=== PATIENT | female | born 1990 | race Caucasian/White ===

== ENCOUNTER 2016-12-15 09:24 | Inpatient (IN) ==
[2016-12-15 10:27] VITALS: BMI 27.0
--- NOTE | 2016-12-15 10:46 | Anesthesia Preoperative Report ---
Anesthesia Epidural/Spinal Rec - Date and Time Date: 12/15/16 Procedure: Labor Epidural Plan: Epidural - Vital Signs Vital Signs: Temperature 98.2 F 12/15/16 10:10 Pulse Rate 97 12/15/16 10:10 Respiratory Rate 16 12/15/16 10:10 Blood Pressure 132/87 12/15/16 10:10 Pulse Oximetry 99 12/15/16 10:10 /Para: P:1 Heart Rate: 135 - Medictaions & Allergies Allergies/Adverse Reactions: Allergies Allergy/AdvReac Type Severity Reaction Status Date / Time No Known Allergies Allergy Unverified 03/09/12 15:30 - Home Medications Home Medications: Home Medications Medication Instructions Recorded Confirmed Type Sertraline HCl [Zoloft] 25 mg PO DAILY #0 08/12/10 History Vits W-Ca,Fe,Fa(<1MG) 1 tab PO DAILY #0 02/02/12 History () Butalb/Acetaminophen/Caffeine 1 tab PO PRN #0 03/09/12 History (Fioricet 50/325/40) Ibuprofen 800 mg PO PRN #0 03/09/12 History - Medical History Gastrointestional: Reports: Gastroesophageal Reflux Disease Neuro/Musculoskeletal: Reports: Depression, Headaches - Surgical History Anesthesia Reactions: None Hx Family Anesthesia Reaction: No History of Motion Sickness: No - Social History Smoking Status: Current every day smoker Packs per day: 0.1 Second Hand Exposure: No Substance Use Type: does not use Alcohol Intake Frequency: does not drink Hx Chewing Tobacco Use: No - Physical Exam Respiratory Exam: lungs clear Cardiovascular Exam: regular rate and rhythm - Airway Assessment Mallampati Score: I TMD: 3 Fingerbreadths Neck Extension: good Overall Assessment: no airway concerns - ASA ASA Score: 2 - Discussion Discussion: Discussed risks/options/alternatives of anesthesia and questions answered. Patient consents. Nursing pain assessment noted. Anesthesia Discussion: family member Attestation Statement: Prior to the delivery of any anesthetic medication, I examined the patient, developed the plan, obtained the patient's consent and discussed the risk and benefits of the procedure with the patient/guardian.
[2016-12-15] MEDS ORDERED: MAG-AL + SIM ORAL LIQUID 30ml PO PRN ×2 (10:59→20:02)
[2016-12-15] MEDS ORDERED: CARBOPROST 250 MCG/ML INJECTION IM PRN (10:59)
[2016-12-15] MEDS ORDERED: METHYLERGONOVINE 0.2 MG/ML INJECTION IM PRN (10:59)
[2016-12-15] MEDS ORDERED: LIDOCAINE 1% (10mg/ml) 2mL INJ PF SDV ID PRN (10:59)
[2016-12-15] MEDS ORDERED: CALCIUM CARBONATE Chewable 500mg TABLET PO PRN ×2 (10:59→20:02)
[2016-12-15] MEDS ORDERED: ACETAMINOPHEN 500 MG TABLET PO PRN ×2 (10:59→20:02)
[2016-12-15] MEDS: LR 1,000 ML IV PRN ×2 (12:04→12:24)
[2016-12-15] MEDS ORDERED: NALOXONE 0.4 MG/ML INJECTION IVP PRN (12:07)
[2016-12-15] MEDS ORDERED: ONDANSETRON 4 MG/2 ML INJECTION IVP PRN (12:07)
[2016-12-15] MEDS ORDERED: ROPIVACAINE 1% 10MG/ML INJ 200 MG, SUFentanil 50 MCG in NS 100 ML EPI PRN (12:07)
[2016-12-15] MEDS ORDERED: DiphenhydrAMINE 50 MG/ML INJECTION IVP PRN (12:07)
[2016-12-15] MEDS ORDERED: OXYTOCIN DRIP 30 UNIT/500 ML ML IV PRN (14:37)
[2016-12-15] MEDS ORDERED: D5LR 1,000 ML IV PRN (14:37)
[2016-12-15] MEDS: OXYTOCIN DRIP 30 UNIT/500 ML ML IV SCH (18:40)
[2016-12-15] MEDS ORDERED: DiphenhydrAMINE 25 MG CAPSULE PO PRN (20:02)
[2016-12-15] MEDS ORDERED: BENZOCAINE 20% SPRAY 0.5 ML MM ONE (20:02)
[2016-12-15] MEDS ORDERED: HYDROCORTISONE 2.5% CREAM 30gm RECTALLY PRN (20:02)
[2016-12-15] MEDS: HYDROCODONE/APAP 5mg/325mg TABLET PO PRN (20:52)
[2016-12-15] MEDS: IBUPROFEN 800 MG TABLET PO PRN (20:52)
[2016-12-16] MEDS: HYDROCODONE/APAP 5mg/325mg TABLET PO PRN ×4 (02:34→22:37)
[2016-12-16] MEDS ORDERED: NS 1,000 ML IV SCH (03:00)
[2016-12-16] MEDS ORDERED: MORPHINE SULFATE 10 MG SYRINGE IV PRN (03:00)
[2016-12-16] MEDS: OXYTOCIN DRIP 30 UNIT/500 ML ML IV SCH (03:25)
--- NOTE | 2016-12-16 08:01 | OB/GYN Progress Note ---
OB-PP Progress Note - General PPD1 Maternal blood type: A+ Maternal Rubella Status: Immune - Subjective Date: 12/16/16 Lochia: Minimal Pain: controlled Voiding: voiding Nausea or Vomiting Present: No - Objective Vital Signs: Last Vital Signs Temp 98.1 F 12/15/16 23:30 Pulse 87 12/15/16 23:30 Resp 16 12/15/16 23:30 BP 116/68 12/15/16 23:30 Pulse Ox 98 12/15/16 23:30 General: alert and oriented Abdomen: fundus firm, non-tender Edema: none Laboratory: Laboratory Results - last 24 hr 12/15/16 12/15/16 11:08 11:08 WBC 9.3 RBC 4.30 Hgb 13.3 Hct 39.2 MCV 91.2 MCH 30.9 MCHC 33.9 RDW Std Deviation 44.0 Plt Count 322 MPV 9.5 Blood Type A Positive Antibody Screen Negative - Assessment Assessment: SP, , Tubal Ligation Comments: Still desires PPTL. Reviewed permanence, options. Q&A - Plan Plan: routine care
--- NOTE | 2016-12-16 08:07 | Labor and Delivery Note ---
DATE OF DELIVERY: 12/15/2016 DIAGNOSES 1. 26-year-old white female, G2, P1, at 38.6 weeks gestational age. 2. Premature rupture of membranes. 3. Pitocin induction for PROM. 4. Epidural anesthesia. 5. Spontaneous vaginal delivery. 6. Nuchal cord x 1. 7. Female , 3085 g, 8//9/9 Apgars (Marlin Trina). BRIEF DESCRIPTION This is a patient of Dr. Scruggs who is a G2, P1. Her first delivery was with Dr. Cordero. She is 38 weeks 6 days gestational age and reports her water broke this morning. She came in and AmniSure was positive and she was 2 cm dilated. She was oneal some, so they waited to see if she would go into labor on her own, but she didn't and so Dr. Scruggs started Pitocin. It reached a maximum of 20 milliunits a minute. She got an epidural block. She progressed slowly. At 5:00 p.m. she was 3/80/-2 with Pitocin at 20. At that time Dr. Scruggs turned care over to me. She continued to progress in dilation and then later that evening when I checked her she was complete in ROP presentation. We set the room up and then began pushing and baby spontaneously rotated to OA. We had a spontaneous vaginal delivery through a nuchal cord x 1. Infant was bulb suctioned after delivery of the head and then again after delivery of the body. Cord was allowed to drain for a minute and 45 seconds and then it was completed collapsed by that time, so I went ahead and doubly clamped and cut it. The was initially placed on the mother's abdomen. Placenta delivered spontaneously and was intact. Perineum was intact. Maternal blood type is A+, GBS was negative and rubella was immune. At time of dictation mother and infant are doing well. MTDD
[2016-12-16] MEDS ORDERED: LR 1,000 ML IV SCH (11:00)
[2016-12-16] MEDS ORDERED: BUPIVACAINE 0.25% (2.5mg/ml) PF 30ml INJECTION ONE (11:13)
--- NOTE | 2016-12-16 11:28 | Anesthesia Preoperative Report ---
Anesthesia Preoperative Record - Date and Time Date: 12/16/16 Preoperative Diagnosis: pt request sterilization Proposed Procedure: pptl NPO Since Date: 12/15/16 NPO Since Time: 23:00 Allergies/Adverse Reactions: Allergies Allergy/AdvReac Type Severity Reaction Status Date / Time No Known Allergies Allergy Unverified 03/09/12 15:30 - Vital Signs Vital Signs: Temperature 97.5 F 12/16/16 08:32 Pulse Rate 87 12/16/16 08:32 Respiratory Rate 16 12/16/16 08:32 Blood Pressure 113/81 12/16/16 08:32 Pulse Oximetry 98 12/15/16 23:30 Height and Weight: Height 1.57 m Weight 67 kg Body Mass Index 27.0 - Medications Inpatient Medications: Current Medications Acetaminophen (Tylenol) 500 - 1,000 mg PO Q4H PRN PRN Reason: Discomfort Hydrocodone Bitart/Acetaminophen (Ada 5/325) 1 - 2 tab PO Q4H PRN PRN Reason: Pain Last Admin: 12/16/16 02:34 Dose: 2 tab Al Hydroxide/Mg Hydroxide (Maalox Plus) 30 ml PO Q4H PRN PRN Reason: Indigestion Calcium Carbonate (Tums) 500 - 1,000 mg PO Q2H PRN PRN Reason: Dyspepsia Carboprost Tromethamine (Hemabate) 250 mcg IM O PRN PRN Reason: .Downtime Diphenhydramine HCl (Benadryl) 25 - 50 mg PO Q6H PRN PRN Reason: Itching Last Admin: 12/16/16 02:33 Dose: 50 mg Docusate Calcium (Surfak) 240 mg PO DAILY [facility] Hydrocortisone (Anusol-Hc 2.5% Cream) 1 applic RECTALLY PRN PRN Oxytocin (Pitocin Drip) 30 unit in 500 mls @ 95 mls/hr IV .Q5H16M NIMISHA Last Admin: 12/16/16 03:25 Dose: Not Given Sodium Chloride (Normal Saline) 1,000 mls @ 125 mls/hr IV .Q8H NIMISHA Last Admin: 12/16/16 03:06 Dose: 125 mls/hr Lactated Ringer's (Lactated Ringers) 1,000 mls @ 50 mls/hr IV .Q20H [facility] Ibuprofen (Motrin) 800 mg PO Q8H PRN PRN Reason: Pain Last Admin: 12/15/16 20:52 Dose: 800 mg Magnesium Hydroxide (Mom) 30 ml PO DAILY PRN PRN Reason: Constipation Methylergonovine Maleate (Methergine) 0.2 mg IM O PRN Misoprostol (Cytotec) 800 mcg MD ONCE PRN Morphine Sulfate (Morphine Sulfate Inj) 0 mg IV Q1HR PRN PRN Reason: Pain Phenylephrine HCl (Anusol Supp) 1 supp MD PRN PRN PRN Reason: Hemorrhoids Home Medications: Home Medications Medication Instructions Recorded Confirmed Type Sertraline HCl [Zoloft] 25 mg PO DAILY #0 08/12/10 History Vits W-Ca,Fe,Fa(<1MG) 1 tab PO DAILY #0 02/02/12 History () Butalb/Acetaminophen/Caffeine 1 tab PO PRN #0 03/09/12 History (Fioricet 50/325/40) Ibuprofen 800 mg PO PRN #0 03/09/12 History - Medical History Cardiovascular: Reports: Hypertension (history of ) Neuro/Musculoskeletal: Reports: Depression (anxiety ) - Surgical History Reproductive Surgery/Treatment: DENIES: Section Anesthesia Reactions: None Hx Family Anesthesia Reaction: No - Social History Smoking Status: Current every day smoker Hx Chewing Tobacco Use: No Second Hand Exposure: No Substance Use Type: does not use Alcohol Intake Frequency: does not drink - Pertinent Findings Laboratory: CBC and BMP 12/15/16 11:08 EKG: Sinus Rhythm - Physical Exam Respiratory Exam: Present: lungs clear Cardiovascular Exam: Present: regular rate and rhythm - Airway Assessment Mallampati Score: I TMD: 3 Fingerbreadths Neck Extension: good Overall Assessment: no airway concerns - ASA ASA Score: 2 - Plan Regional/Trunk Block: Spinal - Discussion Discussion: Discussed risks/options/alternatives of anesthesia and questions answered. Patient consents. Nursing pain assessment noted. Present for Discussion: family member Attestation Statement: Prior to the delivery of any anesthetic medication, I examined the patient, developed the plan, obtained the patient's consent and discussed the risk and benefits of the procedure with the patient/guardian.
[2016-12-16] MEDS ORDERED: FentaNYL 100 MCG/2 ML INJECTION ONE (11:33)
[2016-12-16] MEDS ORDERED: MIDAZOLAM 2mg/2ml INJECTION ONE ×2 (11:33→12:32)
[2016-12-16] MEDS ORDERED: BUPIVACAINE 0.25% (2.5mg/ml) PF 30ml INJECTION SQ ONE (12:39)
[2016-12-16] MEDS ORDERED: BUPIVACAINE 0.25% (2.5mg/ml) PF 30ml INJECTION ID ONE (13:01)
--- NOTE | 2016-12-16 13:05 | OB/GYN Procedure Note ---
[employer] Operative Note Date of Operation: 12/16/16 Preoperative Diagnosis: Sterilization Postoperative Diagnosis: Sterilization [employer] Procedure: Tubal Ligation Surgeon: Melody Scruggs MD Anesthesia Provider: Osman Gallardo CRNA Anesthesia Type: Spinal Estimated Blood Loss: 25cc
--- NOTE | 2016-12-16 13:10 | Anesthesia Postoperative Note ---
- Date and Time Date: 12/16/16 Time: 13:10 - Status Patient Participated in Evaluation: Patient Participated in Person Vital Signs: Temperature 98.4 F 12/16/16 11:30 Pulse Rate 91 12/16/16 11:30 Respiratory Rate 14 12/16/16 11:30 Blood Pressure 140/88 H 12/16/16 11:30 Pulse Oximetry 96 12/16/16 11:30 Respiratory Function: Airway Patent Cardiovascular Function: Regular Pulse EKG: Sinus Rhythm Mental Status: Alert and Oriented Pain Intensity: 0 Hydration: IV Infusing Complications During Recover: None Apparent - Follow-Up Instructions Instructions: Per Surgeon
[2016-12-16] MEDS: DOCUSATE CALCIUM 240 MG CAPSULE PO SCH (14:11)
[2016-12-16] MEDS: IBUPROFEN 800 MG TABLET PO PRN ×2 (14:38→22:37)
[2016-12-16 23:40] VITALS: PULSE 78; RESP 16
[2016-12-17] MEDS: HYDROCODONE/APAP 5mg/325mg TABLET PO PRN ×3 (03:25→12:51)
[2016-12-17 07:30] VITALS: O2SAT 97
[2016-12-17] MEDS: IBUPROFEN 800 MG TABLET PO PRN (08:07)
[2016-12-17] MEDS: DOCUSATE CALCIUM 240 MG CAPSULE PO SCH (08:08)
--- NOTE | 2016-12-17 08:23 | OB/GYN Progress Note ---
OB-PP Progress Note - General PPD2 Maternal blood type: A+ Maternal Rubella Status: Immune - Subjective Date: 12/17/16 Lochia: Minimal Pain: controlled Voiding: voiding Nausea or Vomiting Present: No - Objective Vital Signs: Last Vital Signs Temp 98.2 F 12/17/16 07:10 Pulse 78 12/17/16 07:10 Resp 16 12/17/16 07:10 BP 130/84 12/17/16 07:10 Pulse Ox 97 12/17/16 07:10 Urine Output: good General: alert and oriented Abdomen: fundus firm Incision: normal, intact Extremities: non-tender - Assessment Assessment: , Tubal Ligation - Plan Plan: routine care, discharge home ([place] 5mg/325mg #30 and Ibuprofen 800mg #60 rx sent home with patient. )
--- NOTE | 2016-12-17 14:01 | Operative Note ---
DATE OF PROCEDURE 12/16/2016 PREOPERATIVE DIAGNOSIS Desires sterilization. POSTOPERATIVE DIAGNOSIS Desires sterilization. PROCEDURE Bilateral tubal ligation (modified [place]). SURGEON Melody Scruggs MD ANESTHESIA Spinal - Osman Gallardo CRNA EBL 25 ml DESCRIPTION OF PROCEDURE Ms. Rudd was brought to the OR and given regional analgesia to good effect. She was then placed on the OR table in a comfortable supine position. The abdomen was prepped and draped in the usual sterile fashion. The infraumbilical region was infiltrated with dilute Marcaine. A curvilinear 4-cm incision was made with a sharp knife. Subcutaneous tissues were bluntly dissected. The fascia was very weak at this point, but it was tented up and incised transversely, then peritoneum tented up and sharply entered, then bluntly extended transversely. [facility] retractors were placed in the incision. We were then able to locate the right fallopian tube. I grasped it with a Rahul clamp and followed it out to its fimbriae. I repositioned the [place] at the midpoint. I infiltrated the area with dilute Marcaine. I then made a simple ligature isolating a knuckle of tube of approximately 2 cm using a 2-0 chromic. I then pierced the mesosalpinx with a clamp containing a suture and then used that 2-0 silk to ligate on either side of the previously isolated section of tube. I then excised the isolated knuckle of tube. The stumps were carefully observed and found to be hemostatic. I returned the tube to the abdominal cavity. I then located the left fallopian tube and repeated the procedure in the exact same fashion. Again, stumps were hemostatic. I reinspected for any signs of bleeding on either side. There were no signs of bleeding, so we began our closure. Peritoneum was reapproximated with a pursestring suture of 2-0 Vicryl. Fascia was reapproximated with a figure-of- eight suture of 2-0 Vicryl. Skin edges were then reapproximated with a subcuticular style 4-0 undyed Vicryl. The wound was dressed with sterile dressings. Counts were correct postoperatively x 2. Mrs. Rudd was then transferred to Recovery in stable condition. JODI
[2016-12-17 14:17] VITALS: BP 121/74; TEMP 98.3
== END 2016-12-17 14:51 | disposition home or self-care (01) | DRG 767 ==
LOC: MC 09:24
PROVIDERS: ADMIT Obstetrics & Gynecology; ATTEND Obstetrics & Gynecology